=== PATIENT | male | born 1955 | race Caucasian/White ===

== ENCOUNTER 2018-03-23 20:12 | Emergency (ER) | payer OTHER | END 2018-03-24 01:16 | disposition home or self-care (01) | LOC: FTE 03-24 01:16 | DX: S20.212A Contusion of left front wall of thorax, initial encounter (principal); S50.811A Abrasion of right forearm, initial encounter; I10 Essential (primary) hypertension; V89.2XXA Person injured in unspecified motor-vehicle accident, traffic, initial encounter; Z79.82 Long term (current) use of aspirin; Z98.61 Coronary angioplasty status | CPT/HCPCS: 71045; 99283-25 ==